=== PATIENT | female | born 1950 | race Caucasian/White ===

== ENCOUNTER 2022-05-17 10:00 | Day surgery (SDC) | payer MEDICARE ==
[2022-05-17] MEDS ORDERED: Propofol 200 MG/20 ML SDV ONE (10:05)
[2022-05-17] MEDS ORDERED: Midazolam 1 MG/ML 2 ML SDV ONE (10:05)
[2022-05-17] MEDS ORDERED: fentaNYL 100 MCG/2 ML SDV ONE (10:05)
[2022-05-17] MEDS ORDERED: Lactated Ringers 1,000 ML IV SCH (10:30)
== END 2022-05-17 12:05 | disposition home or self-care (01) ==
LOC: JP.SDS 10:00
PROVIDERS: ATTEND Family Medicine
DX: Z12.11 Encounter for screening for malignant neoplasm of colon (principal); D12.8 Benign neoplasm of rectum; I48.91 Unspecified atrial fibrillation; E78.5 Hyperlipidemia, unspecified; K21.9 Gastro-esophageal reflux disease without esophagitis; Z95.0 Presence of cardiac pacemaker; Z98.890 Other specified postprocedural states
CPT/HCPCS: 88305; J2250; J2704; J3010; J7120